=== PATIENT | male | born 1945 | race Hispanic/Latino ===

== ENCOUNTER 2024-11-18 16:12 | Emergency (ER) | payer MEDICARE ==
[~2024-11-18] VITALS: Ht 172.7 cm; Wt 86.2 kg
[2024-11-18 18:27] LABS: LEUKOCYTE ESTERASE ,URINE SMALL (NEGATIVE)
[2024-11-18 18:28] LABS: PROTEIN,URINE DIPSTICK 2+ (NEGATIVE); URINE UROBILINOGEN 1 mg/dL (0.2 - 1)
[2024-11-18 18:43] LABS: WBC,URINE (MAN) >50 /HPF (0-5)
[2024-11-18 19:19] LABS: BASOPHILS % 0.3 % (0.0-1.0); EOSINOPHILS % 0.5 % (0.0-6.0); LYMPHOCYTES % 17.2 % (18.0-39.1); MONOCYTES % 14.1 % (4.4-11.3); NEUTROPHILS % 66.0 % (38.7-80.0); RED CELL DISTRIBUTION WIDTH 14.4 % (11.7-14.4)
[2024-11-18 19:41] LABS: EST GLOMERULAR FILTRATION RATE 50.0 ML/MIN (>=60)
[2024-11-18] MEDS ORDERED: IOPAMIDOL 370 MG/ML 100 ML INFUS..BTL INJ ONE (19:49)
[2024-11-18] MEDS ORDERED: AMOX TR-K CLV1 EAC2 PO (21:34)
[2024-11-18] MEDS ORDERED: Morphine 2mg Syringe 2 MG/ML SYR ONE (21:34)
[2024-11-18] MEDS ORDERED: FLOMAX0.4 MG PO (21:34)
[2024-11-18] MEDS: KETOROLAC TROMETHAMINE 30 MG/ML VIAL IV STA (21:38)
[2024-11-18] MEDS: Morphine 4mg INJECTION 4 MG/ML INJ IV STA (21:39)
[2024-11-18 21:45] VITALS: PULSE 78; RESP 22; TEMP 98.8
[2024-11-18 22:09] VITALS: BP 131/64; PULSE 78; RESP 22; O2SAT 97
== END 2024-11-18 22:00 | disposition home or self-care (01) ==
LOC: ER 17:48
DX: R10.13 Epigastric pain (principal); N39.0 Urinary tract infection, site not specified; N41.0 Acute prostatitis; K57.90 Diverticulosis of intestine, part unspecified, without perforation or abscess without bleeding; K76.0 Fatty (change of) liver, not elsewhere classified
CPT/HCPCS: 36415; 74177; 80053; 81001; 82550; 83690; 84484; 85025; 87086; 87186; 93005; 99284; J1885; Q9967; J2270